=== PATIENT | female | born 1960 | race Two or more races ===

== ENCOUNTER 2023-08-12 19:20 | Emergency (ER) | payer OTHER ==
[~2023-08-12] VITALS: Ht 157.5 cm; Wt 72.6 kg
[~2023-08-12 19:20] MED LIST: IBUPROFEN200 MG; LEVAQUIN750 MG PO; ZESTRIL40 M1; [UNRECOGNIZED DRUG - OTHER]
[2023-08-12] MEDS ORDERED: CLONAZEPAM1 M1 (19:30)
[2023-08-12] MEDS ORDERED: DILTIAZEM ER180 M3 (19:30)
[2023-08-12] MEDS ORDERED: LEVOTHYROXINE125 MC1 (19:31)
[2023-08-12] MEDS ORDERED: SERTRALINE20 MG/1 ML (19:31)
[2023-08-12 20:26] LABS: HEMATOCRIT 40.2 % (36.0-45.00); MEAN CELL VOLUME 83.4 fL (80.00-100.00); MEAN CORPUSCULAR HGB CONC 32.4 g/dl (32.0-36.0); PLATELET COUNT 244 K/uL (150-450); RED BLOOD COUNT 4.82 M/uL (4.00-6.00); RED CELL DISTRIBUTION WIDTH 15.1 % (11.5-14.5)
[2023-08-12 20:46] LABS: ALBUMIN 3.6 gm/dL (3.4-5.0); BILIRUBIN TOTAL 0.3 mg/dL (0.3-1.2); CALCIUM 8.9 mg/dL (8.5-10.1); CREATININE SERUM 1.1 mg/dL (0.55-1.02); GFR 50.66; GLOBULINA 4.2 G/DL (2.4-3.5); POTASSIUM 3.05 mEq/L (3.5-5.1); TOTAL PROTEIN 7.8 gm/dL (6.4-8.2)
[2023-08-12] MEDS ORDERED: CARAFATE1 GM PO (22:47)
[2023-08-12] MEDS ORDERED: OMEPRAZOLE40 MG PO (22:47)
[2023-08-12] MEDS ORDERED: LEVSIN/SL0.125 MG SL (22:47)
== END 2023-08-12 23:22 | disposition home or self-care (01) ==
LOC: ER 19:20
PROVIDERS: General Practice
DX: R19.7 Diarrhea, unspecified (principal); Z88.0 Allergy status to penicillin; Z88.5 Allergy status to narcotic agent; Z88.6 Allergy status to analgesic agent

== ENCOUNTER 2024-07-26 06:57 | Emergency (ER) | payer OTHER ==
[~2024-07-26] VITALS: Ht 157.5 cm; Wt 97.5 kg
[~2024-07-26 06:57] MED LIST changes: +CARAFATE1 GM PO; +CLONAZEPAM1 M1; +DILTIAZEM ER180 M3; +LEVOTHYROXINE125 MC1; +LEVSIN/SL0.125 MG SL; +OMEPRAZOLE40 MG PO; +SERTRALINE20 MG/1 ML
[2024-07-26] MEDS ORDERED: CARDURA1 MG PO (07:28)
[2024-07-26] MEDS ORDERED: SEROQUEL50 MG PO (07:28)
[2024-07-26 09:23] LABS: HEMATOCRIT 42.4 % (36.0-45.00); HEMOGLOBIN 14.1 g/dL (12.0-15.00); MEAN CELL VOLUME 85.8 fL (80.00-100.00); MEAN CORPUSCULAR HEMOGLOBIN 28.5 pg (27.00-32.0); MEAN CORPUSCULAR HGB CONC 33.2 g/dl (32.0-36.0); PLATELET COUNT 230 K/uL (150-450); RED BLOOD COUNT 4.94 M/uL (4.00-6.00); RED CELL DISTRIBUTION WIDTH 15.9 % (11.5-14.5)
[2024-07-26] MEDS ORDERED: LEVALBUTEROL HCL 1.25 MG/3 ML SOLUTION IH STA (09:25)
[2024-07-26 09:52] LABS: ALBUMIN 3.2 gm/dL (3.4-5.0); ALKALINE PHOSPHATASE 84 U/L (50-136); ALT/SGPT 17 U/L (12-78); ANION GAP 8 (10.0-20.0); AST/SGOT 6 U/L (15-37); BILIRUBIN TOTAL 0.24 mg/dL (0.3-1.2); BILIRUBIN,CONJUGATED < 0.10 mg/dL (0.0-0.2); BILIRUBIN,UNCONJUGATED 0.14 mg/dL (0.0-0.6); BLOOD UREA NITROGEN 28 mg/dL (7-18); BUN CREA RATIO 33 (7.0-25.0); CALCIUM 9.5 mg/dL (8.5-10.1); CARBON DIOXIDE 32 mEq/L (21-32); CHLORIDE 109 mmol/L (98-107); CREATININE SERUM 0.84 mg/dL (0.55-1.02); GFR 68.93; GLUCOSE FASTING 172 mg/dL (65-100); OSMOLALITY SERUM 298 MOSM/KG (275-295); POTASSIUM 3.94 mEq/L (3.5-5.1); SODIUM 145 mmol/L (136-145); TOTAL PROTEIN 7.3 gm/dL (6.4-8.2)
[2024-07-26 10:07] LABS: PH,URINE 5.5 (5.0-8.0); URINE BILIRRUBIN Negative (NEGATIVE); URINE BLOOD Negative; URINE COLOR Yellow; URINE GLUCOSE Negative (NEGATIVE); URINE KETONE Negative (NEGATIVE); URINE LEUKOCYTE Negative; URINE NITRATE Negative; URINE PROTEIN Negative (NEGATIVE); URINE UROBILINOGEN 0.2 E.U./dl
[2024-07-26 10:11] LABS: URINE BACTERIA 197.7 uL (0.0-1933); URINE EPITHELIAL CELLS 4.1 uL (0.0-38.8); URINE WBC 1.9 uL (0.0-23.2)
[2024-07-26 10:21] LABS: URINE APPEARANCE CLEAR; URINE RBC 1.9 uL (0.0-20.8)
[2024-07-26] MEDS ORDERED: MEPERIDINE HCL/PF 25 MG/ML VIAL IM STA (11:07)
[2024-07-26] MEDS ORDERED: PROMETHAZINE HCL 25 MG/ML AMPUL IM STA (11:08)
== END 2024-07-26 11:46 | disposition home or self-care (01) ==
LOC: ER 06:59
PROVIDERS: General Practice
DX: N39.0 Urinary tract infection, site not specified (principal); I10 Essential (primary) hypertension; E03.8 Other specified hypothyroidism; E11.9 Type 2 diabetes mellitus without complications; Z88.0 Allergy status to penicillin; Z88.5 Allergy status to narcotic agent; Z88.6 Allergy status to analgesic agent

== ENCOUNTER 2024-10-10 09:11 | Outpatient (CLI) | payer OTHER ==
[~2024-10-10 09:11] MED LIST changes: +CARDURA1 MG PO; +SEROQUEL50 MG PO
== END 2024-10-10 09:18 | disposition home or self-care (01) ==
LOC: MAMO-SONO 09:11
PROVIDERS: ATTEND Internal Medicine
DX: L88 Pyoderma gangrenosum (principal); E11.65 Type 2 diabetes mellitus with hyperglycemia; E11.36 Type 2 diabetes mellitus with diabetic cataract; H25.093 Other age-related incipient cataract, bilateral; M06.9 Rheumatoid arthritis, unspecified; E11.51 Type 2 diabetes mellitus with diabetic peripheral angiopathy without gangrene; E11.40 Type 2 diabetes mellitus with diabetic neuropathy, unspecified; F33.9 Major depressive disorder, recurrent, unspecified; M81.0 Age-related osteoporosis without current pathological fracture; F41.1 Generalized anxiety disorder; E78.2 Mixed hyperlipidemia; I11.9 Hypertensive heart disease without heart failure; J44.9 Chronic obstructive pulmonary disease, unspecified; I73.9 Peripheral vascular disease, unspecified; E03.9 Hypothyroidism, unspecified; I87.2 Venous insufficiency (chronic) (peripheral); L03.114 Cellulitis of left upper limb; E11.622 Type 2 diabetes mellitus with other skin ulcer; N30.91 Cystitis, unspecified with hematuria; B35.4 Tinea corporis; E13.622 Other specified diabetes mellitus with other skin ulcer; Z12.11 Encounter for screening for malignant neoplasm of colon; Z13.29 Encounter for screening for other suspected endocrine disorder; Z13.220 Encounter for screening for lipoid disorders; Z13.1 Encounter for screening for diabetes mellitus; Z13.820 Encounter for screening for osteoporosis; Z12.39 Encounter for other screening for malignant neoplasm of breast